=== PATIENT | female | born 1995 | race Two or more races ===

== ENCOUNTER 2020-03-21 00:44 | Emergency (ER) | payer MEDICAID, OTHER ==
[~2020-03-21] VITALS: Ht 165.1 cm; Wt 59.0 kg
[2020-03-21 01:01] LABS: Bilirubin, Total 0.4 mg/dL (0.2-1.0); Total Protein 8.3 g/dL (6.4-8.2)
[2020-03-21] MEDS ORDERED: LORazepam 2MG/ML-1ML VIAL IV ONE (01:15)
[2020-03-21 01:38] LABS: Basophils # (auto) 0.1 10 ^3/uL (0-0.2); Basophils % (auto) 0.9 % (0.0-2.0); Eosinophils # (auto) 0.1 10 ^3/uL (0-0.8); Eosinophils % (auto) 1.9 % (0.0-7.0); Hematocrit 44.2 % (36.0-46.0); Hemoglobin 15.3 g/dL (12.2-16.2); Lymphocytes # (auto) 1.2 10 ^3/uL (0.4-5.4); Lymphocytes % (auto) 18.2 % (10.0-50.0); Mean Corpuscular Hemoglobin 29.2 pg (28.0-32.0); Mean Corpuscular Hgb Conc. 34.6 g/dL (32.0-36.0); Mean Corpuscular Volume 84.4 fL (80.0-100.0); Monocytes # (auto) 0.7 10 ^3/uL (0-1.3); Neutrophils # (auto) 4.7 10 ^3/uL (1.6-8.6); Nucleated Red Blood Cells % 0.1 %; Platelet Count (auto) 255 10^3/uL (140-450); Red Blood Cells 5.24 10^6/uL (4.0-5.20); Red Cell Distribution Width 14.9 % (11.8-14.3); White Blood Cell 6.9 10^3/uL (4.4-10.8)
[2020-03-21] MEDS ORDERED: PROMETHAZINE HCL 25 MG/ML 1ML IV ONE (01:45)
[2020-03-21] MEDS ORDERED: FAMOTIDINE (10MG/ML) 2ML VL IV ONE (01:45)
[2020-03-21 01:59] LABS: Albumin 3.5 g/dL (3.4-5.0); BUN/Creatinine Ratio 14.6; Calcium 9.6 mg/dL (8.5-10.1); Potassium 3.1 mmol/L (3.5-5.1)
[2020-03-21 03:52] LABS: Urine Bacteria MANY /hpf (None Seen); Urine Blood Negative /uL (Negative); Urine Hyaline Cast MANY /lpf (0 - 2); Urine Mucus MODERATE (None Seen); Urine Specific Gravity 1.026 (1.001-1.035); Urine WBC 262 /hpf (0 - 5)
[2020-03-21 04:03] LABS: Amphetamine Screen, Urine POSITIVE (NEGATIVE); Barbiturate Scree,Urine NEGATIVE (NEGATIVE); Benzodiazephine Screen, Urine POSITIVE (NEGATIVE); Cannabinoid Screen, Urine NEGATIVE (NEGATIVE); Cocaine Screen, Urine NEGATIVE (NEGATIVE); Opiate Scree,Urine NEGATIVE (NEGATIVE); Phencyclidine Screen, Urine NEGATIVE (NEGATIVE)
[2020-03-21] MEDS ORDERED: POTASSIUM CHL 20 Meq TABLET PO ONE (05:00)
[2020-03-21 05:33] VITALS: BP 136/93
[2020-03-21] MEDS ORDERED: cefTRIAXone 1GM/50ML D5W 50 ML IV ONE (05:45)
== END 2020-03-21 07:09 | disposition home or self-care (01) ==
LOC: ER 00:44 → EDBD 00:44 → ER 07:09
DX: R56.9 Unspecified convulsions (principal); R11.2 Nausea with vomiting, unspecified; R41.82 Altered mental status, unspecified; F15.10 Other stimulant abuse, uncomplicated
CPT/HCPCS: 36415; 70450; 80053; 80307; 81001; 85025; 93005; 96365; 96375; 99285; J0696; J2060; J2550; J3490

== ENCOUNTER 2020-05-31 00:30 | Emergency (ER) | payer MEDICAID ==
[~2020-05-31] VITALS: Ht 165.1 cm; Wt 68.0 kg
[2020-05-31] MEDS ORDERED: HYDROcodone-ACET 7.5/325MG TAB PO ONE (01:00)
[2020-05-31 03:25] VITALS: BP 133/90
== END 2020-05-31 05:17 | disposition home or self-care (01) ==
LOC: EDBD 00:30 → ER 00:30
DX: S16.1XXA Strain of muscle, fascia and tendon at neck level, initial encounter (principal); S09.8XXA Other specified injuries of head, initial encounter; Y04.2XXA Assault by strike against or bumped into by another person, initial encounter; Y93.89 Activity, other specified; Y92.89 Other specified places as the place of occurrence of the external cause; Y99.8 Other external cause status
CPT/HCPCS: 70450; 72125

== ENCOUNTER 2020-09-22 19:57 | Emergency (ER) | payer MEDICAID ==
[~2020-09-22] VITALS: Ht 154.9 cm; Wt 59.0 kg
[2020-09-22 19:57] VITALS: BP 151/58
== END 2020-09-22 20:27 | disposition left against medical advice (07) ==
LOC: ER 20:04
DX: Z53.21 Procedure and treatment not carried out due to patient leaving prior to being seen by health care provider

== ENCOUNTER 2022-02-10 02:31 | Emergency (ER) | payer MEDICAID, OTHER ==
[~2022-02-10] VITALS: Ht 165.1 cm; Wt 200.0 kg
[2022-02-10] MEDS ORDERED: LIDOCAINE 1%HCL (LOCAL ANESTH) 10 ML MDV ONE ×2 (03:04→06:29)
[2022-02-10] MEDS ORDERED: LORazepam 2MG/ML-1ML VIAL ONE (03:28)
[2022-02-10] MEDS ORDERED: HALOPERIDOL LACTATE 5 MG/ML INJ VIAL ONE (03:28)
[2022-02-10] MEDS ORDERED: diphenhdrAMINE HCL 50 MG/1 ML VL ONE (03:28)
[2022-02-10] MEDS ORDERED: diphenhdrAMINE HCL 50 MG/1 ML VL IV ONE (03:30)
[2022-02-10] MEDS ORDERED: HALOPERIDOL LACTATE 5 MG/ML INJ VIAL IM ONE (03:30)
[2022-02-10] MEDS ORDERED: LORazepam 2MG/ML-1ML VIAL IM ONE ×2 (03:30→04:45)
[2022-02-10] MEDS ORDERED: BACITRACIN TOP OINT 1 UD PKG TOP ONE (07:00)
[2022-02-10 08:22] LABS: Basophils # (auto) 0.1 10 ^3/uL (0-0.2); Basophils % (auto) 0.6 % (0.0-2.0); Eosinophils # (auto) 0 10 ^3/uL (0-0.8); Hematocrit 36.8 % (36.0-46.0); Hemoglobin 12.1 g/dL (12.2-16.2); Lymphocytes # (auto) 1.8 10 ^3/uL (0.4-5.4); Lymphocytes % (auto) 15.9 % (10.0-50.0); Mean Corpuscular Hemoglobin 27.1 pg (28.0-32.0); Mean Corpuscular Volume 82.3 fL (80.0-100.0); Monocytes # (auto) 0.9 10 ^3/uL (0-1.3); Neutrophils # (auto) 8.5 10 ^3/uL (1.6-8.6); Neutrophils % (auto) 75.5 % (37.0-80.0); Nucleated Red Blood Cells % 0.2 %; Red Blood Cells 4.47 10^6/uL (4.0-5.20); Red Cell Distribution Width 14.3 % (11.8-14.3); White Blood Cell 11.3 10^3/uL (4.4-10.8)
[2022-02-10 08:44] LABS: Albumin 3.9 g/dL (3.4-5.0); Calcium 8.6 mg/dL (8.5-10.1); Potassium 3.5 mmol/L (3.5-5.1)
[2022-02-10 08:47] LABS: BUN/Creatinine Ratio 19.5; Bilirubin, Total 0.8 mg/dL (0.2-1.0); Total Protein 7.8 g/dL (6.4-8.2)
[2022-02-10 11:09] LABS: Acetaminophen < 2.0 ug/mL (10-30); Salicylate < 1.7 mg/dL (2.8-20.0)
[2022-02-10 22:16] LABS: Amphetamine Screen, Urine POSITIVE (NEGATIVE); Barbiturate Scree,Urine NEGATIVE (NEGATIVE); Benzodiazephine Screen, Urine NEGATIVE (NEGATIVE); Cannabinoid Screen, Urine NEGATIVE (NEGATIVE); Cocaine Screen, Urine NEGATIVE (NEGATIVE); Opiate Scree,Urine NEGATIVE (NEGATIVE); Phencyclidine Screen, Urine NEGATIVE (NEGATIVE)
[2022-02-11 21:00] VITALS: BP 136/97
== END 2022-02-11 21:36 | disposition short-term general hospital (02) ==
LOC: EDBD → EDUNIT# 02:31 → ER 02:31 → EDBD 02:31 → ER 02-11 21:36
DX: S61.512A Laceration without foreign body of left wrist, initial encounter (principal); T50.902A Poisoning by unspecified drugs, medicaments and biological substances, intentional self-harm, initial encounter; Z20.822 Contact with and (suspected) exposure to COVID-19; X78.9XXA Intentional self-harm by unspecified sharp object, initial encounter; Y93.89 Activity, other specified; Y92.89 Other specified places as the place of occurrence of the external cause; Y99.8 Other external cause status
CPT/HCPCS: 12004; 36415; 80053; 80307; 80329; 84484; 84702; 85025; 87426; 96372; 96374; 99285; J1200; J1630; J2001; J2060

== ENCOUNTER 2022-02-14 03:56 | Emergency (ER) | payer MEDICAID ==
[~2022-02-14] VITALS: Ht 165.1 cm; Wt 72.0 kg
[2022-02-14 03:58] VITALS: BP 107/54
[2022-02-14] MEDS ORDERED: LORazepam 0.5 MG TAB PO ONE (04:15)
[2022-02-14] MEDS ORDERED: HALOPERIDOL LACTATE 5 MG/ML INJ VIAL IM ONE (04:30)
== END 2022-02-14 04:57 | disposition left against medical advice (07) ==
LOC: EDBD → EDUNIT# 03:56 → EDBD 03:56 → ER 03:58
DX: R44.3 Hallucinations, unspecified (principal); Z53.21 Procedure and treatment not carried out due to patient leaving prior to being seen by health care provider

== ENCOUNTER 2022-02-16 16:36 | Emergency (ER) | payer MEDICAID ==
[~2022-02-16] VITALS: Ht 152.4 cm; Wt 80.0 kg
[2022-02-16 16:52] VITALS: BP 146/94
== END 2022-02-16 18:48 | disposition left against medical advice (07) ==
LOC: EDBD → ER 16:36
DX: R44.3 Hallucinations, unspecified (principal)

== ENCOUNTER 2022-02-16 21:35 | Emergency (ER) | payer MEDICAID, OTHER ==
[~2022-02-16] VITALS: Ht 170.2 cm; Wt 74.9 kg
[2022-02-17 02:00] VITALS: BP 141/96
== END 2022-02-17 09:37 | disposition left against medical advice (07) ==
LOC: ER 21:35 → EDUNIT# 21:35 → EDBD 21:35 → ER 02-17 09:37
DX: F41.9 Anxiety disorder, unspecified (principal); R44.1 Visual hallucinations